=== PATIENT | male | born 1960 | race Two or more races ===

== ENCOUNTER 2024-11-22 12:09 | Outpatient (RCR) | payer MEDICARE, SELFPAY ==
--- NOTE | 2024-11-22 12:30 | XR_ITS ---
Examination: EZIO, hepatobiliary radioisotope scan Gallbladder ejection fraction study. Date and time of exam: November 22, 2024, 1517 hours INDICATIONS: Upper back pain heartburn reflux 2 years Technique: 5.6 mCi of 99M Hepatolite administered. Serial imaging then obtained from immediate through 60 minutes. 1.3 mcg selective catheter Kinevac administered for gallbladder ejection fraction study. Findings: Radioisotope activity within the liver is reasonably homogenous. Gallbladder, common bile duct small bowel activity noted Impression: Gallbladder activity Normal gallbladder ejection, 42%
== END 2024-11-27 23:59 | disposition home or self-care (01) ==
LOC: SNUC 12:09
PROVIDERS: PCP Nurse Practitioner Family; Referring Provider Nurse Practitioner Family; Visit Provider Nurse Practitioner Family
DX: R10.11 Right upper quadrant pain (principal)
CPT/HCPCS: 78227; A9537; J2805